=== PATIENT | female | born 1965 | race Caucasian/White ===

== ENCOUNTER 2018-05-23 08:36 | Emergency (ER) | payer OTHER, SELFPAY ==
[2018-05-23] MEDS ORDERED: Dexamethasone 10 MG/ML VIAL ONE (08:59)
== END 2018-05-23 09:05 | disposition home or self-care (01) ==
LOC: MADERS 08:36
DX: R21 Rash and other nonspecific skin eruption (principal); I10 Essential (primary) hypertension
CPT/HCPCS: 96372; J1100